=== PATIENT | male | born 1960 | race Caucasian/White ===

== ENCOUNTER 2017-08-04 10:11 | Emergency (ER) | payer BC ==
[~2017-08-04] VITALS: Ht 177.8 cm; Wt 104.5 kg
[2017-08-04] MEDS ORDERED: ADDE20CA3 PO (10:20)
[2017-08-04] MEDS ORDERED: NORC10TA21 PO (10:20)
[2017-08-04] MEDS ORDERED: anti inflammatory PO (10:20)
[2017-08-04] MEDS ORDERED: DICL100T PO (10:22)
[2017-08-04 10:38] LABS: YEAST LIKE CELL URINE AUTO SMALL
[2017-08-04] MEDS ORDERED: NS 1,000 ML IV ONE (10:45)
[2017-08-04] MEDS ORDERED: KETOROLAC 30 MG/ML VIAL (J1885) IV ONE (10:45)
--- NOTE | 2017-08-04 11:17 | REP ---
Clinical: Right flank pain. Findings: The right kidney and ureter appear relatively normal and without obvious perinephric stranding or hydroureteronephrosis. However, a 1 mm distal right ureteral calculus (image 130) cannot be excluded and should be correlated with physical examination. The left kidney demonstrates mild perinephric stranding and a 12 mm calculus in a dilated renal pelvis suggesting intermittent obstruction and associated renal colic. No intra renal calculi are otherwise appreciated and the bladder is unremarkable. Liver, spleen, pancreas, gallbladder and bilateral adrenal glands are normal. The enteric system is without obstruction or acute inflammatory process. Normal terminal ileum and appendix are identified in the right lower quadrant. Scattered colonic diverticula noted without acute diverticulitis. Pelvis demonstrates normal bladder and prostate/seminal vesicles. No ascites. No free air. No adenopathy. Abdominal aorta without aneurysm. Musculoskeletal structures are intact. Lung bases are clear. A moderate hiatal hernia is appreciated at the gastroesophageal junction. Impression: 1. Cannot exclude 1 mm calculus in the distal right ureter without associated hydronephrosis or perinephric/periureteral stranding. 2. 12 mm calculus in the left renal pelvis with mild stranding suggests the possibility of intermittent obstruction and renal colic. 3. Moderate hiatal hernia. 4. Scattered diverticulosis without acute diverticulitis. Signed by Coleman Sterling MD 08/04/2017 11:07 A
[2017-08-04 12:05] LABS: BASO % 0.7 % (0.0-1.0); EOS # 0.2 K/mm3 (0.0-0.50); EOS % 5.2 % (0.0-3.0); LARGE UNSTAINED CELL # 0.2 K/mm3 (0.0-0.4); LARGE UNSTAINED CELL % 4.1 % (0.0-4.0); LYMPH # 1.3 K/mm3 (1.5-4.5); LYMPH % 29.2 % (24.0-44.0); MEAN CORPUSCULAR HEMOGLOBIN 26.1 pg (27.0-33.0); MEAN CORPUSCULAR HGB CONC 31.9 g/dl (32.0-36.5); MEAN CORPUSCULAR VOLUME 81.7 fl (80.0-96.0); MONO # 0.4 K/mm3 (0.0-0.8); NEUTROPHILS # 2.3 K/mm3 (1.8-7.7); NEUTROPHILS % 52.9 % (36.0-66.0); PLATELET COUNT, AUTOMATED 356 k/mm3 (150-450); RED CELL DISTRIBUTION WIDTH 16.6 % (11.5-14.5); WHITE BLOOD COUNT 4.4 K/mm3 (4.0-10.0)
[2017-08-04 12:26] LABS: ALBUMIN 3.5 GM/DL (3.2-5.2); ALBUMIN/GLOBULIN RATIO 0.97 (1.00-1.93); ALKALINE PHOSPHATASE 98 U/L (45-117); ALT/SGPT 46 U/L (12-78); ANION GAP 8 MEQ/L (8-16); AST/SGOT 29 U/L (15-37); BILIRUBIN,DIRECT < 0.1 MG/DL (0.0-0.2); BILIRUBIN,TOTAL 0.2 MG/DL (0.2-1.0); BLOOD UREA NITROGEN 17 MG/DL (7-18); CALCIUM LEVEL 8.8 MG/DL (8.5-10.1); CARBON DIOXIDE LEVEL 25 MEQ/L (21-32); CHLORIDE LEVEL 108 MEQ/L (98-107); CREATININE FOR GFR 0.85 MG/DL (0.70-1.30); GLOMERULAR FILTRATION RATE > 60.0 (>56); GLUCOSE, FASTING 83 MG/DL (70-105); POTASSIUM SERUM 4.5 MEQ/L (3.5-5.1); SODIUM LEVEL 141 MEQ/L (136-145); TOTAL PROTEIN 7.1 GM/DL (6.4-8.2)
[2017-08-04] MEDS ORDERED: NORCOTAB PO (12:45)
[2017-08-04 12:52] VITALS: BP 119/68
== END 2017-08-04 13:01 | disposition home or self-care (01) ==
LOC: M ED 10:11
DX: N20.2 Calculus of kidney with calculus of ureter (principal); N23 Unspecified renal colic; M19.90 Unspecified osteoarthritis, unspecified site; F90.9 Attention-deficit hyperactivity disorder, unspecified type; Z87.442 Personal history of urinary calculi; Z79.899 Other long term (current) drug therapy; Z91.013 Allergy to seafood
CPT/HCPCS: 74176; 80048; 80076; 81001; 83690; 85025; 96374; 99283; J1885